=== PATIENT | male | born 1965 | race American Indian/Alaskan Native ===

== ENCOUNTER 2019-07-23 20:02 | Emergency (ER) | payer MEDICARE, MEDICAID ==
--- NOTE | 2019-07-23 21:02 | EDM.PDOC ---
ED HPI GENERAL MEDICAL PROBLEM - General Chief Complaint: Gastrointestinal Problem Stated Complaint: UPPER ABD PAIN Time Seen by Provider: 07/23/19 20:45 Source of Information: Reports: Old Records, RN, Other (staff member at skilled nursing.) History Limitations: Reports: Other (patient nonverbal) - History of Present Illness INITIAL COMMENTS - FREE TEXT/NARRATIVE: 53 yo NA male skilled nursing resident is brought in for epigastric pain that began sometime today. Patient is nonverbal. Had a large, soft BM yesterday, but none today. No vomiting. Staff feels he is distended. Has a pHx of constipation issues. Onset: Today Onset Date: 07/23/19 Duration: Hour(s): (unclear when it began. ), Constant Location: Reports: Abdomen (epigastric) Quality: Reports: Other (not sure, nonverbal) Severity: Moderate Improves with: Reports: Other (unknown) Worsens with: Reports: Other (unknown) Context: Reports: Other (see HPI) Associated Symptoms: Reports: No Other Symptoms Treatments CARE CLINICIAN: Reports: Other (see below) (none) epigastric pain Pain Score (Numeric/FACES): 6 - Related Data Allergies Allergy/AdvReac Type Severity Reaction Status Date / Time No Known Allergies Allergy Verified 07/23/19 20:54 Home Meds: Home Meds Ammonium Lactate [Lac-Hydrin 12% Crm] 1 applic TOP DAILY 07/23/19 [History] Pantoprazole Sodium [Protonix] 40 mg PO DAILY 07/23/19 [History] Psyllium Husk [Metamucil] 15 ml PO DAILY 07/23/19 [History] Sennosides/Docusate Sodium [Senna Plus 8.6-50 mg Tablet] 2 tab PO BID 07/23/19 [ History] Tobramycin/Dexamethasone [Tobradex Eye Ointment] 1 applic EYERT DAILY 07/23/19 [ History] Triamterene/Hydrochlorothiazid [Triamterene-HCTZ 37.5-25 MG] 1 tab PO DAILY 06/30 [History] Past Medical History HEENT History: Reports: Impaired Vision, Other (See Below) Other HEENT History: 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 Gastrointestinal History: Reports: Bowel Obstruction, Chronic Constipation, Gastritis Psychiatric History: Reports: Learning Disability Dermatologic History: Reports: Psoriasis - Past Surgical History HEENT Surgical History: Reports: Eye Surgery, Other (See Below) Other HEENT Surgeries/Procedures: Right eye removed Social & Family History - Tobacco Use Smoking Status *Q: Never Smoker - Caffeine Use Caffeine Use: Reports: Soda - Recreational Drug Use Recreational Drug Use: No ED ROS GENERAL - Review of Systems Review Of Systems: See Below Constitutional: Reports: No Symptoms HEENT: Reports: No Symptoms Respiratory: Reports: No Symptoms Cardiovascular: Reports: No Symptoms GI/Abdominal: Reports: Abdominal Pain, Distension. Denies: Black Stool, Bloody Stool, Constipation, Diarrhea, Flatus, Hematemesis, Hematochezia, Melena, Nausea , Vomiting : Reports: No Symptoms Musculoskeletal: Reports: No Symptoms Skin: Reports: No Symptoms Neurological: Reports: No Symptoms ED EXAM, GI/ABD - Physical Exam Exam: See Below Exam Limited By: Other (patient is nonverbal) General Appearance: Alert, WD/WN, No Apparent Distress Eyes: Bilateral: Normal Appearance Ears: Normal External Exam, Normal Canal, Hearing Grossly Normal Nose: Normal Inspection, No Blood Throat/Mouth: Normal Inspection, Normal Lips, Normal Oropharynx, Normal Voice, No Airway Compromise Head: Atraumatic, Normocephalic Neck: Normal Inspection Respiratory/Chest: No Respiratory Distress, Lungs Clear, Normal Breath Sounds, No Accessory Muscle Use Cardiovascular: Regular Rate, Rhythm GI/Abdominal Exam: Normal Bowel Sounds, Distended, Tender (epigastrium). No: Soft, Non-Tender, No Distention, Guarding, Rigid, Rebound Extremities: Normal Inspection, Normal Range of Motion, Non-Tender, No Pedal Edema Neurological: Alert, CN II-XII Intact, No Motor/Sensory Deficits Psychiatric: Normal Affect, Normal Mood Skin Exam: Warm, Dry, Intact, Normal Color, No Rash Course - Vital Signs Last Recorded V/S: Last Vital Signs Temp 35.5 C 07/23/19 20:32 Pulse 79 07/23/19 20:32 Resp 16 07/23/19 20:32 BP 141/92 H 07/23/19 20:32 Pulse Ox 98 07/23/19 20:32 - Orders/Labs/Meds Orders: Active Orders 24 hr Category Date Time Status Enema [RC] ASDIRECTED Care 07/23/19 21:15 Active Labs: Laboratory Tests 07/23/19 07/23/19 07/23/19 Range/Units 20:50 20:50 21:31 WBC 8.6 (4.5-11.0) K/uL RBC 5.75 (4.30-5.90) M/uL Hgb 16.4 H (12.0-15.0) g/dL Hct 48.4 (40.0-54.0) % MCV 84 (80-98) fL MCH 29 (27-31) pg MCHC 34 (32-36) % Plt Count 230 (150-400) K/uL Sodium 139 L (140-148) mmol/L Potassium 3.2 L (3.6-5.2) mmol/L Chloride 102 (100-108) mmol/L Carbon Dioxide 28 (21-32) mmol/L Anion Gap 12.2 (5.0-14.0) mmol/L BUN 14 (7-18) mg/dL Creatinine 0.7 L (0.8-1.3) mg/dL Est Cr Clr Drug Dosing 98.22 mL/min Estimated GFR (MDRD) > 60 (>60) Glucose 154 H (74-106) mg/dL Calcium 8.1 L (8.5-10.1) mg/dL Lipase 134 (73-393) U/L Urine Color Yellow (YELLOW) Urine Appearance Clear (CLEAR) Urine pH 6.5 (5.0-8.0) Ur Specific Webster 1.025 (1.008-1.030) Urine Protein Negative (NEGATIVE) mg/dL Urine Glucose (UA) Negative (NEGATIVE) mg/dL Urine Ketones Negative (NEGATIVE) mg/dL Urine Occult Blood Negative (NEGATIVE) Urine Nitrite Negative (NEGATIVE) Urine Bilirubin Negative (NEGATIVE) Urine Urobilinogen 0.2 (0.2-1.0) EU/dL Ur Leukocyte Esterase Negative (NEGATIVE) Urine RBC 0-5 (0-5) Urine WBC Not seen (0-5) Ur Epithelial Cells Not seen Amorphous Sediment Not seen Urine Bacteria Few Urine Mucus Not seen Meds: Medications Discontinued Medications Generic Name Dose Route Start Last Admin Trade Name Freq PRN Reason Stop Dose Admin Potassium Chloride 40 meq 07/23/19 21:39 Potassium Chloride PO 07/23/19 21:40 ONETIME ONE - Radiology Interpretation Free Text/Narrative:: Flat/upright abdominal [id number]: Single supine view of the abdomen. Gassy distention of the colon. Moderate amount of stool within the left colon. No evidence for small bowel obstruction. Dictated by Kimmy Dennis MD @ Jul 23 2019 9:29PM Departure - Departure Time of Disposition: 22:10 Disposition: Home, Self-Care 01 Condition: Good Clinical Impression: Fecal impaction, Hypokalemia - Discharge Information *PRESCRIPTION DRUG MONITORING PROGRAM REVIEWED*: No *COPY OF PRESCRIPTION DRUG MONITORING REPORT IN PATIENT JONNA: No Instructions: Constipation, Adult, [id number] Referrals: PCP,None [Primary Care Provider] - Forms: ED Department Discharge Additional Instructions: Double up on your metamucil, take twice daily. Recheck with your provider later this week. Return as needed. Sepsis Event Note - Evaluation Sepsis Screening Result: No Definite Risk - Focused Exam Vital Signs: Vital Signs Temp Pulse Resp BP Pulse Ox 07/23/19 20:32 35.5 C 79 16 141/92 H 98 07/23/19 20:23 35.5 C 79 16 141/92 H 98 Date Exam was Performed: 07/23/19 Time Exam was Performed: 21:59 - My Orders Last 24 Hours: My Active Orders 07/23/19 21:15 Enema [RC] ASDIRECTED - Assessment/Plan Last 24 Hours: My Active Orders 07/23/19 21:15 Enema [RC] ASDIRECTED
--- NOTE | 2019-07-23 21:31 | CRLCR ---
HISTORY: Epigastric pain. COMPARISON: None. FINDINGS: Single supine view of the abdomen. Gassy distention of the colon. Moderate amount of stool within the left colon. No evidence for small bowel obstruction. Dictated by Kimmy Dennis MD @ Jul 23 2019 9:29PM Signed by Dr. Kimmy Dennis @ Jul 23 2019 9:30PM
[2019-07-23] MEDS ORDERED: Potassium Chloride 10 MEQ Cap.ER PO ONE (21:39)
== END 2019-07-23 22:25 | disposition home or self-care (01) ==
LOC: JP.ED 20:02 → EDBD 20:02 → JP.ED 22:25
DX: K56.41 Fecal impaction (principal); E87.6 Hypokalemia
CPT/HCPCS: 36415; 74018; 80048; 81001; 83690; 85027; 99283; 99284; A9270